=== PATIENT | male | born 1970 | race African-American/Black ===

== ENCOUNTER 2018-08-05 10:39 | Outpatient (CLI) | payer OTHER ==
[2018-08-05 12:03] LABS: Hematocrit 47.1 % (35.5-45.6); Hemoglobin 16.2 gm/dl (11.8-15.2); Mean Corpuscular HGB Conc 35 % (32-34); Mean Corpuscular Volume 92 fl (84-94); Platelet Count 156 K/mm3 (140-440); Red Cell Distribution Width 13.6 % (13.2-15.2)
[2018-08-05 12:19] LABS: Alanine Aminotransferase 33 units/L (7-56); BUN/Creatinine Ratio 24; Blood Urea Nitrogen 12 mg/dL (9-20); Calcium 9.8 mg/dL (8.4-10.2); Hemolysis Index 8; LDL Cholesterol,Direct 62 mg/dL (50-130)
[2018-08-05 12:33] LABS: Chol/HDL Ratio 2.36 %; HDL Cholesterol 47 mg/dL (40-59)
== END 2018-08-05 10:40 | disposition home or self-care (01) ==
LOC: LAB 10:39
PROVIDERS: ATTEND Internal Medicine
DX: Z00.01 Encounter for general adult medical examination with abnormal findings (principal); R73.9 Hyperglycemia, unspecified; E78.6 Lipoprotein deficiency; N40.0 Benign prostatic hyperplasia without lower urinary tract symptoms; E55.9 Vitamin D deficiency, unspecified
CPT/HCPCS: 36415; 80053; 80061; 82306; 82607; 83036; 84153; 84443; 85027

== ENCOUNTER 2018-12-09 08:48 | Outpatient (CLI) | payer OTHER ==
[2018-12-09 10:38] LABS: Alanine Aminotransferase 37 units/L (7-56); Albumin 4.5 g/dL (3.9-5)
[2018-12-09 10:39] LABS: Bilirubin,Direct < 0.2 mg/dL (0-0.2)
[2018-12-09 11:05] LABS: Chol/HDL Ratio 3.27 %
== END 2018-12-09 08:49 | disposition home or self-care (01) ==
LOC: LAB 08:48
PROVIDERS: ATTEND Internal Medicine
DX: E78.5 Hyperlipidemia, unspecified (principal); R73.03 Prediabetes
CPT/HCPCS: 36415; 80061; 80076; 83036